=== PATIENT | female | born 1965 | race Caucasian/White ===

== ENCOUNTER 2017-05-27 14:16 | Emergency (ER) | payer BC ==
[2017-05-27 14:29] VITALS: BP 133/96
[2017-05-27] MEDS ORDERED: HYDROmorphone 0.5 MG/0.5 ML Syringe IM ONE (14:44)
--- NOTE | 2017-05-27 16:31 | EDM.PDOC ---
ED HPI GENERAL MEDICAL PROBLEM - General Chief Complaint: Upper Extremity Injury/Pain Stated Complaint: RIGHT ARM INJURY Time Seen by Provider: 05/27/17 14:30 Source of Information: Reports: Patient, Old Records (shoulder xray on CD) History Limitations: Reports: No Limitations - History of Present Illness INITIAL COMMENTS - FREE TEXT/NARRATIVE: 52-year-old female presents for evaluation of her right shoulder. Patient reports that she fractured her right shoulder about 2 weeks ago. She was seen at another clinic. She has a disc of the x-ray. She states that since then she has seen orthopedics in [place]. She had a CT scan. As concluded that she did not require surgery. She states that she is placed in a shoulder immobilizer. She has been wearing this as prescribed. Patient reports today she lunged forward to try and stop a dog. She states that her forearm was disconnected from the shoulder sling. She will reports hearing a popping sound. Reports worsening pain in her right shoulder. Tried Tylenol for the pain. She is out of her pain medication. She is also reporting pain in her proximal right forearm. No numbness or tingling to the arm. 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: Musculoskeletal History: Reports: Fracture, Osteoporosis Other Musculoskeletal History: shoulder Neurological History: Reports: Migraines Psychiatric History: Reports: Depression - Past Surgical History HEENT Surgical History: Reports: Adenoidectomy, Tonsillectomy GI Surgical History: Reports: Cholecystectomy Musculoskeletal Surgical History: Reports: Other (See Below) Other Musculoskeletal Surgeries/Procedures:: ankle surgery (srews) Social & Family History - Family History Family Medical History: Noncontributory - Tobacco Use Years of Tobacco use: 25 Packs/Tins Daily: 1 - Caffeine Use Caffeine Use: Reports: Coffee, Soda, Tea - Recreational Drug Use Recreational Drug Use: No Review of Systems - Review of Systems Review Of Systems: See Below Musculoskeletal: Reports: Shoulder Pain (right), Arm Pain (right proximal forearm). Denies: Joint Swelling Skin: Reports: Other (deformity to the right shoulder). Denies: Bruising, Erythema, Change in Color Neurological: Denies: Numbness, Tingling ED EXAM, GENERAL - Physical Exam Exam: See Below Exam Limited By: No Limitations General Appearance: Alert, WD/WN, No Apparent Distress Respiratory/Chest: No Respiratory Distress Cardiovascular: Normal Peripheral Pulses, Regular Rate, Rhythm Peripheral Pulses: 2+: Radial (L), Radial (R) Extremities: Normal Capillary Refill, Limited Range of Motion (patient is in a sling and swath), Other (deformity to the ) Neurological: Alert, Oriented, Normal Cognition Psychiatric: Normal Affect, Normal Mood Skin Exam: Warm, Dry, Normal Color Course - Vital Signs Last Recorded V/S: Last Vital Signs Temp 36.9 C 05/27/17 14:26 Pulse 107 H 05/27/17 14:26 Resp 16 05/27/17 14:26 BP 133/96 H 05/27/17 14:26 Pulse Ox 98 05/27/17 14:26 - Orders/Labs/Meds Meds: Medications Discontinued Medications Generic Name Dose Route Start Last Admin Trade Name Charanjit PRN Reason Stop Dose Admin Hydromorphone HCl 0.5 mg 05/27/17 14:44 05/27/17 15:16 Dilaudid IM 05/27/17 14:45 0.5 mg ONETIME ONE Administration - Radiology Interpretation Free Text/Narrative:: xray of the right shoulder shows a fracture of the right proximal humerus, minimal displacement. No dislocations. Reviewed by myself and Dr. Ennis. xray of the right forearm shows no acute fracture or dislocations. No fat pad sign. - Re-Assessments/Exams Free Text/Narrative Re-Assessment/Exam: 05/27/17 16:20 I reviewed the xray with the patient. Will have her continue to use the shoulder immobilizer and have her follow-up with ortho this week. Prescription for pain mediation provided. Discharge instructions as documented. Departure - Departure Time of Disposition: 16:26 Disposition: Home, Self-Care 01 Condition: Fair Clinical Impression: Fracture of humerus Qualifiers: Encounter type: subsequent encounter Humerus Location: proximal Fracture type: closed Fracture alignment: nondisplaced Laterality: right Fracture healing: with delayed healing - Discharge Information Instructions: Humerus Fracture Treated With Immobilization, Vvae-eu-Drit Referrals: PCP,Not In Area [Primary Care Provider] - Bobby Christiansen MD [Physician] - Forms: ED Department Discharge Additional Instructions: norco 5-325mg tabs 1 tab every 4-6 hours as needed for severe pain. #20 given from [facility] Follow-up with Dr. christiansen within 1 week for a recheck on your symptoms. Your given medication in the ER that can affect your ability to drive and operate machinery. No driving or operating machinery within 12 hours of taking prescription narcotic pain medication. may take Mission one tablet every 4 to 6 hours as needed for severe pain. Mission can be habit-forming, I recommend you take as few as needed to control your pain. Do not drive or operate machinery with 12 hours of taking narcotic pain medication. Continue to wear your shoulder immobilizer. Continue to ice the shoulder. Please return to the ER if your symptoms change or worsen.
--- NOTE | 2017-05-28 08:02 | CR ---
Right shoulder: Three views of the right shoulder were obtained. Fracture is identified through the surgical neck of the proximal humerus. Mild displacement and angulation are seen. Bony structures are otherwise unremarkable. Impression: 1. Minimally displaced and angulated proximal right humeral fracture. Diagnostic code #3
--- NOTE | 2017-05-29 08:42 | CR ---
Right forearm: Two views of the right forearm were obtained. Comparison: No previous study. No fracture or other abnormality is appreciated. Impression: 1. No abnormality is identified on two-view right forearm study. Diagnostic code #2
== END 2017-05-27 17:05 | disposition home or self-care (01) ==
LOC: JD.ED 14:16
DX: S42.201A Unspecified fracture of upper end of right humerus, initial encounter for closed fracture (principal); F32.9 Major depressive disorder, single episode, unspecified; Z90.49 Acquired absence of other specified parts of digestive tract; Z98.890 Other specified postprocedural states; Z88.8 Allergy status to other drugs, medicaments and biological substances; X50.1XXA Overexertion from prolonged static or awkward postures, initial encounter
CPT/HCPCS: 73030; 73090; 96372; 99283; J1170